=== PATIENT | female | born 1975 | race Caucasian/White ===

== ENCOUNTER 2023-11-25 11:55 | Emergency (ER) | payer BC, OTHER, SELFPAY ==
[2023-11-25 12:13] VITALS: BP 141/68; PULSE 75; RESP 16; TEMP 36.1; O2SAT 97
[2023-11-25 12:36] LABS: Add Urine Microscopic? NO; Appearance Urine Clear (Clear); Bilirubin Urine Negative (Negative); Blood Urine Negative (Negative); Color Urine Yellow (Yellow); Glucose Urine UA Negative (Negative); Ketones Urine Negative (Negative); Leukocyte Esterase Ur Negative LEU/UL (Negative); Nitrate Urine Negative (Negative); Protein Urine Negative (Negative); Specific Grav Ur 1.021 (1.001-1.035); Urobilinogen Urine 0.2 mg/dL (<2.0); pH Urine 6.5 (5.0-9.0)
[2023-11-25 13:01] LABS: BEDSIDEPREGUCG Negative (Negative)
--- NOTE | 2023-11-25 16:24 | PC.NURSE ---
Pt refusing to change into gown. Pt states I just need a GI coctail. I don't need anything else. That is really not necessary.
[2023-11-25 16:27] VITALS: BP 148/96; PULSE 68; RESP 18; O2SAT 98
--- NOTE | 2023-11-25 18:03 | ED.ABDPAIN ---
HPI - Abdominal Pain General Chief Complaint: Abdominal Pain Stated Complaint: abd pain x 4 days Time Seen by Provider: 11/25/23 16:20 History of Present Illness HPI narrative: 48-year-old female presenting with abdominal pain. Patient states that she has a history of a gastric ulcer and this feels exactly like that. States that she has had to come to the ER before for a GI cocktail. States that she ate [employer] several days ago and has had horrible pain since then. No vomiting. States that she already has an endoscopy scheduled and she has an appointment with her PCP next week. States that she just needs a GI cocktail. Related Data Allergies Allergy/AdvReac Type Severity Reaction Status Date / Time erythromycin base Allergy Hives Verified 11/25/23 12:18 Review of Systems Review of Systems: All systems reviewed & are unremarkable except as noted in HPI and below Exam Narrative: GENERAL: Well-appearing, in no acute distress, very pleasant cooperative HEAD: Normocephalic, atraumatic. EYES: PERRLA and EOMI. ENT: Nares clear, no rhinorrhea or epistaxis. Mucous membranes moist. NECK: Supple. CHEST: No respiratory distress. HEART: Regular rate and rhythm ABDOMEN: Soft, nondistended EXTREMITIES: Normal range of motion. SKIN: Warm, dry, no rash. NEURO: Alert and oriented x3. PSYCH: Normal mood and affect. Course Vital Signs Vital signs: Vital Signs Temperature 96.9 F L 11/25/23 12:13 Pulse Rate 75 11/25/23 12:13 Respiratory Rate 16 11/25/23 12:13 Blood Pressure 141/68 H 11/25/23 12:13 Pulse Oximetry 97 11/25/23 12:13 Oxygen Delivery Room Air 11/25/23 12:13 Temperature 96.9 F L 11/25/23 12:13 Pulse Rate 75 11/25/23 12:13 Respiratory Rate 16 11/25/23 12:13 Blood Pressure 141/68 H 11/25/23 12:13 Pulse Oximetry 97 11/25/23 12:13 Oxygen Delivery Room Air 11/25/23 12:13 MDM - Abdominal Pain MDM Narrative Medical decision making narrative: 48-year-old female presenting with abdominal pain. Vitals are stable. Exam remarkable for the above. Patient declines lab work, states that she just needs a GI cocktail. UA was obtained from triage, no acute abnormalities. States that this is the exact same pain she has whenever her ulcer is acting up. She already has an endoscopy and follow-up scheduled. Patient given a GI cocktail and discharged in stable condition. Differential Diagnosis Differential diagnosis: Likely abdominal pain, gastroenteritis and other (Gastric ulcer, GERD) Medical Records Attestation: I reviewed the patient's medical records. Lab Data Attestation: I reviewed the patient's lab results. Labs: Lab Results 11/25/23 11/25/23 Range/Units 12:26 12:58 Urine Color Yellow (Yellow) Urine Appearance Clear (Clear) Urine pH 6.5 (5.0-9.0) Ur Specific [place] 1.021 (1.001-1.035) Urine Protein Negative (Negative) mg/dL Urine Glucose (UA) Negative (Negative) mg/dL Urine Ketones Negative (Negative) mg/dL Ur Blood (Man) Negative (Negative) Urine Nitrate Negative (Negative) Urine Bilirubin Negative (Negative) Urine Urobilinogen 0.2 (<2.0) mg/dL Leukocyte Esterase Rfl Negative (Negative) LEONIDES/UL POC Urine HCG, Qual Negative (Negative) Critical Care Time Critical Care Time Critical Care Time: No Discharge Plan Discharge Clinical Impression: Abdominal pain Patient Disposition: Home, Self-Care Condition: Stable Instructions: Antibiotic Form, Abdominal Pain (ED) Prescriptions: New sucralfate [Carafate] 1 gram tablet 1 g PO TID Qty: 30 0RF Follow-up/Referrals: UNKNOWN,DOCTOR [Primary Care Provider] -
[2023-11-25] MEDS: BELLADONNA ALK/PHENOB ELIX 10 ML, MAG HYDROX/ALUMINUM HYD/SIMETH 30 ML, LIDOCAINE HCL 2... PO (18:12)
== END 2023-11-25 18:19 | disposition home or self-care (01) ==
PROVIDERS: Emergency Medicine; Emergency Provider Emergency Medicine
DX: R10.9 Unspecified abdominal pain (principal)
CPT/HCPCS: 81003; 81025; 99283; A9270